=== PATIENT | male | born 1955 | race African-American/Black ===

== ENCOUNTER 2017-11-21 13:32 | Emergency (ER) | payer BC, OTHER ==
[~2017-11-21] VITALS: Ht 182.9 cm; Wt 138.0 kg
[~2017-11-21 13:32] MED LIST: POLY17S PO; SENN1TAB PO; TAMS5CAP PO
[2017-11-21 13:40] VITALS: BP 107/55; PULSE 82; RESP 15; TEMP 97.9; O2SAT 98
--- NOTE | 2017-11-21 14:12 | RADRPT ---
EXAM DATE/TIME: 11/21/2017 13:48 [facility] COMPARISON: No previous studies available for comparison. INDICATIONS : Syncope. MEDICAL HISTORY : None. SURGICAL HISTORY : None. ENCOUNTER: Subsequent ACUITY: 1 day PAIN SCORE: 0/10 LOCATION: Bilateral chest FINDINGS: A single view of the chest demonstrates the lungs to be symmetrically aerated without evidence of mas s, infiltrate or effusion. The cardiomediastinal contours are unremarkable. Osseous structures are intact. CONCLUSION: No acute disease. Mahad Ramirez MD on November 21, 2017 at 14:09 Board Certified Radiologist. This report was verified electronically.
[2017-11-21 14:21] VITALS: BP 117/58; PULSE 82; RESP 17; O2SAT 98
[2017-11-21] MEDS ORDERED: FINA5TAB2 PO (14:23)
--- NOTE | 2017-11-21 14:39 | PD ---
Data Data Last Documented VS Vital Signs Date Time Temp Pulse Resp B/P (MAP) Pulse Ox O2 Delivery O2 Flow Rate FiO2 11/21/17 16:22 84 17 119/66 (83) 100 Room Air 11/21/17 13:40 97.9 Orders Orders Complete Blood Count With Diff (11/21/17 13:44) Basic Metabolic Panel (Bmp) (11/21/17 13:44) Ckmb (Isoenzyme) Profile (11/21/17 13:44) Troponin I (11/21/17 13:44) Prothrombin Time / Inr (Pt) (11/21/17 13:44) Act Partial Throm Time (Ptt) (11/21/17 13:44) Magnesium (Mg) (11/21/17 13:44) Chest, Single Ap (11/21/17 13:44) Iv Access Insert/Monitor (11/21/17 13:44) Ecg Monitoring (11/21/17 13:44) Oximetry (11/21/17 13:44) Orthostatic Vital Signs (11/21/17 13:44) Ct Abd/Pel W Iv Contrast(Rout) (11/21/17 14:30) Ct Pulmonary Angiogram (11/21/17 14:30) Electrocardiogram (11/21/17 ) Type And Screen (11/21/17 14:47) CKMB (11/21/17 14:15) CKMB% (11/21/17 14:15) Sodium Chlor 0.9% 1000 Ml Inj (Ns 1000 M (11/21/17 15:30) Hydromorphone Pf Inj (Dilaudid Pf Inj) (11/21/17 15:30) Ed Discharge Order (11/21/17 17:06) Labs Laboratory Tests Test 11/21/17 14:15 White Blood Count 7.1 TH/MM3 Red Blood Count 3.76 MIL/MM3 Hemoglobin 9.7 GM/DL Hematocrit 30.1 % Mean Corpuscular Volume 80.1 FL Mean Corpuscular Hemoglobin 25.8 PG Mean Corpuscular Hemoglobin Concent 32.2 % Red Cell Distribution Width 15.8 % Platelet Count 204 TH/MM3 Mean Platelet Volume 8.4 FL Neutrophils (%) (Auto) 85.4 % Lymphocytes (%) (Auto) 10.0 % Monocytes (%) (Auto) 4.3 % Eosinophils (%) (Auto) 0.1 % Basophils (%) (Auto) 0.2 % Neutrophils # (Auto) 6.1 TH/MM3 Lymphocytes # (Auto) 0.7 TH/MM3 Monocytes # (Auto) 0.3 TH/MM3 Eosinophils # (Auto) 0.0 TH/MM3 Basophils # (Auto) 0.0 TH/MM3 CBC Comment DIFF FINAL Differential Comment Prothrombin Time 10.8 SEC Prothromb Time International Ratio 1.1 RATIO Activated Partial Thromboplast Time 23.4 SEC Blood Urea Nitrogen 17 MG/DL Creatinine 1.15 MG/DL Random Glucose 116 MG/DL Calcium Level 7.7 MG/DL Magnesium Level 1.7 MG/DL Sodium Level 136 MEQ/L Potassium Level 4.0 MEQ/L Chloride Level 104 MEQ/L Carbon Dioxide Level 24.3 MEQ/L Anion Gap 8 MEQ/L Estimat Glomerular Filtration Rate 78 ML/MIN Total Creatine Kinase 233 U/L Creatine Kinase MB 1.5 NG/ML Troponin I LESS THAN 0.02 NG/ML MDM Medical Record Reviewed: Yes Supervised Visit with CHUCKY: Yes Narrative Course I, Dr. Craven, have reviewed the advance practice practitioner's documentation and am in agreement, met with the patient face to face, made the diagnosis, and the medical decision making was done by me. *My assessment and Findings: The patient experienced a near syncope episode associated with hypotension during a TURP procedure today. Last 24 hours Impressions Chest X-Ray 11/21/17 1344 Signed Impressions: Service Date/Time: October 13:48 - CONCLUSION: No acute disease. Mahad Ramirez MD CBC & BMP Diagram 11/21/17 14:15 Calcium Level 7.7 L, Magnesium Level 1.7 Last 24 hours Impressions Chest X-Ray 11/21/17 1344 Signed Impressions: Service Date/Time: October 13:48 - CONCLUSION: No acute disease. Mahad Ramirez MD EKG: sinus, rate 81, normal axis, no pre-excitation, no sign ACS Pt to follow up with Dr Wisdom as an outpatient. Diagnosis Primary Impression: Altered mental status Additional Impression: Hypotension Referrals: Christian Wisdom MD call for appointment Additional Instruction: OK TO STOP FINESTERIDE AND TAMSULOSIN Med/Other Pt SpecificInfo: Existing Med Changed Disposition: DISCHARGE HOME Condition: Stable Hu Craven MD Nov 21, 2017 14:39
--- NOTE | 2017-11-21 14:39 | PD ---
HPI Chief Complaint: Complaint Time Seen by Provider: 13:46 Travel History International Travel<30 days: No Contact w/Intl Traveler<30days: No Traveled to known affect area: No History of Present Illness HPI 62-year-old male that presents to the ED for evaluation of hypotension after procedure today. Patient had TURP procedure as well as kidney stone removal by Dr. johnson today as an outpatient. Patient came out of the surgery fine but he was found to be hypotensive and somewhat confused. Per report, was given patient did had some bleeding coming from the Anderson the patient currently has. Patient has irrigation on his Anderson currently. Patient was brought here for evaluation of the hypotension. Per ambulance patient was given fluids and currently his blood pressure has been in the 120 systolic. Per ambulance his alleged blood pressure was in the 80s systolic after surgery. Patient takes no blood thinners. States having some pressure on his bladder otherwise no other symptoms. No dizziness. No headache. No chest pain or shortness of breath. Has no allergies to medication. No other medical issues. PFSH Past Medical History Cancer: No Cardiovascular Problems: No High Cholesterol: No Endocrine: No Gastrointestinal Disorders: Yes (current c/o constipation) Genitourinary: Yes (retention) Immune Disorder: No Musculoskeletal: No Neurologic: No Psychiatric: No Respiratory: No Influenza Vaccination: No Past Surgical History Genitourinary Surgery: Yes (TURP) Social History Alcohol Use: Yes Tobacco Use: No Substance Use: No Allergies-Medications (Allergen,Severity, Reaction): Coded Allergies: No Known Allergies (Unverified Adverse Reaction, Unknown, 11/21/17) Reported Meds & Prescriptions Reported Meds & Active Scripts Active Polyethylene Glycol 3350 Powder (Polyethylene Glycol) 17 Gm Pow 17 Gm PO DAILY Senna Plus 8.6-50 mg (Sennosides-Docusate Sodium) 1 Tab Tab 2 Tab PO BID Flomax (Tamsulosin HCl) 0.4 Mg Cap 0.4 Mg PO DAILY Reported Finasteride 5 Mg Tab 5 Mg PO DAILY Do not crush. Review of Systems Except as stated in HPI: all other systems reviewed are Neg Physical Exam Narrative GENERAL: SKIN: Warm and dry. HEAD: Atraumatic. Normocephalic. EYES: Pupils equal and round. No scleral icterus. No injection or drainage. ENT: No nasal bleeding or discharge. Mucous membranes pink and moist. Tongue is midline. No uvula deviation. NECK: Trachea midline. No JVD. CARDIOVASCULAR: Regular rate and rhythm. No murmurs, S3, S4. RESPIRATORY: No accessory muscle use. Clear to auscultation. Breath sounds equal bilaterally. GASTROINTESTINAL: Abdomen soft, non-tender, nondistended. Hepatic and splenic margins not palpable. Genital exam: Patient has a Anderson noted on the penis. Appears to be draining clear fluid as well as urine and mild amount no blood. No obvious blood clots or significant bleeding noted other than on the back that appears to be somewhat bloody. MUSCULOSKELETAL: Extremities without clubbing, cyanosis, or edema. No obvious deformities. Full range of motion of the upper and lower extremity is bilaterally. 2+ pulses bilaterally. NEUROLOGICAL: Awake and alert. No obvious cranial nerve deficits. Motor grossly within normal limits. Five out of 5 muscle strength in the arms and legs. Normal speech. PSYCHIATRIC: Appropriate mood and affect; insight and judgment normal. Data Data Last Documented VS Vital Signs Date Time Temp Pulse Resp B/P (MAP) Pulse Ox O2 Delivery O2 Flow Rate FiO2 11/21/17 16:22 84 17 119/66 (83) 100 Room Air 11/21/17 13:40 97.9 Orders Orders Complete Blood Count With Diff (11/21/17 13:44) Basic Metabolic Panel (Bmp) (11/21/17 13:44) Ckmb (Isoenzyme) Profile (11/21/17 13:44) Troponin I (11/21/17 13:44) Prothrombin Time / Inr (Pt) (11/21/17 13:44) Act Partial Throm Time (Ptt) (11/21/17 13:44) Magnesium (Mg) (11/21/17 13:44) Chest, Single Ap (11/21/17 13:44) Iv Access Insert/Monitor (11/21/17 13:44) Ecg Monitoring (11/21/17 13:44) Oximetry (11/21/17 13:44) Orthostatic Vital Signs (11/21/17 13:44) Ct Abd/Pel W Iv Contrast(Rout) (11/21/17 14:30) Ct Pulmonary Angiogram (11/21/17 14:30) Electrocardiogram (11/21/17 ) Type And Screen (11/21/17 14:47) CKMB (11/21/17 14:15) CKMB% (11/21/17 14:15) Sodium Chlor 0.9% 1000 Ml Inj (Ns 1000 M (11/21/17 15:30) Hydromorphone Pf Inj (Dilaudid Pf Inj) (11/21/17 15:30) Ed Discharge Order (11/21/17 17:06) Labs Laboratory Tests Test 11/21/17 14:15 White Blood Count 7.1 TH/MM3 Red Blood Count 3.76 MIL/MM3 Hemoglobin 9.7 GM/DL Hematocrit 30.1 % Mean Corpuscular Volume 80.1 FL Mean Corpuscular Hemoglobin 25.8 PG Mean Corpuscular Hemoglobin Concent 32.2 % Red Cell Distribution Width 15.8 % Platelet Count 204 TH/MM3 Mean Platelet Volume 8.4 FL Neutrophils (%) (Auto) 85.4 % Lymphocytes (%) (Auto) 10.0 % Monocytes (%) (Auto) 4.3 % Eosinophils (%) (Auto) 0.1 % Basophils (%) (Auto) 0.2 % Neutrophils # (Auto) 6.1 TH/MM3 Lymphocytes # (Auto) 0.7 TH/MM3 Monocytes # (Auto) 0.3 TH/MM3 Eosinophils # (Auto) 0.0 TH/MM3 Basophils # (Auto) 0.0 TH/MM3 CBC Comment DIFF FINAL Differential Comment Prothrombin Time 10.8 SEC Prothromb Time International Ratio 1.1 RATIO Activated Partial Thromboplast Time 23.4 SEC Blood Urea Nitrogen 17 MG/DL Creatinine 1.15 MG/DL Random Glucose 116 MG/DL Calcium Level 7.7 MG/DL Magnesium Level 1.7 MG/DL Sodium Level 136 MEQ/L Potassium Level 4.0 MEQ/L Chloride Level 104 MEQ/L Carbon Dioxide Level 24.3 MEQ/L Anion Gap 8 MEQ/L Estimat Glomerular Filtration Rate 78 ML/MIN Total Creatine Kinase 233 U/L Creatine Kinase MB 1.5 NG/ML Troponin I LESS THAN 0.02 NG/ML MDM Medical Decision Making Medical Screen Exam Complete: Yes Emergency Medical Condition: Yes Medical Record Reviewed: Yes Interpretation(s) CBC & BMP Diagram 11/21/17 14:15 Calcium Level 7.7 L, Magnesium Level 1.[address] Angiography 11/21/17 1430 Signed Impressions: Service Date/Time: October 15:54 - CONCLUSION: No evidence of pulmonary embolism Roosevelt Campuzano MD Chest X-Ray 11/21/17 1344 Signed Impressions: Service Date/Time: October 13:48 - CONCLUSION: No acute disease. Mahad Ramirez MD coags WNL troponin and CKMB WNL EKG shows sinus rhythm with no sign of acute ischemia or arrhythmia read by my attending. Differential Diagnosis Tension versus postprocedural complication versus bleeding versus PE versus electrolyte abnormality versus perforation Narrative Course 62-year-old male that presents to the ED for evaluation of hypotension after procedure today. Patient was properly examined and was found to have signs and symptoms concerning for hypotension. Unclear etiology at this time. Labs and imaging were ordered. Patient currently normotensive. No complaints other than some pressure to his bladder. Patient appears to be having clear fluid and urine coming out of the Anderson currently and there is minimal amount of blood that I can see. Patient with a blood thinners. Labs and imaging showed no sign of acute disease. Case was discussed in my attending who spoke with Dr. Wisdom who states that patient can be discharged home. Patient was told this and agrees with plan. Patient was told to follow up with urologist. See ED worsening symptoms. My attending spoke with the patient in regards to what Dr. Wisdom wants. Diagnosis Primary Impression: Hypotension Qualified Codes: I95.9 - Hypotension, unspecified Additional Impressions: Dizziness S/P TURP (status post transurethral resection of prostate) Patient Instructions: General Instructions, Narcotic given in the ED Additional Instructions: Take medications as prescribed. Follow-up with your urologist. See ED worsening symptoms. Med/Other Pt SpecificInfo: Prescription(s) given Disposition: 01 DISCHARGE HOME Condition: Stable Biju Ayala Nov 21, 2017 14:39
[2017-11-21 14:40] LABS: AUTOMATED NEUTROPHIL # 6.1 TH/MM3 (1.8-7.7); BASOPHIL % 0.2 % (0.0-2.0); EOSINOPHIL % 0.1 % (0.0-4.0); HEMATOCRIT 30.1 % (39.0-51.0); HEMOGLOBIN 9.7 GM/DL (13.0-17.0); LYMPHOCYTE # 0.7 TH/MM3 (1.0-4.8); MEAN CELL VOLUME 80.1 FL (80.0-100.0); MEAN CORPUSCULAR HEMOGLOBIN 25.8 PG (27.0-34.0); MEAN CORPUSCULAR HGB CONC 32.2 % (32.0-36.0); MEAN PLATELET VOLUME 8.4 FL (7.0-11.0); MONO % 4.3 % (0.0-8.0); MONOCYTE # 0.3 TH/MM3 (0-0.9); NEUT % 85.4 % (16.0-70.0); PLATELET COUNT 204 TH/MM3 (150-450); RED BLOOD COUNT 3.76 MIL/MM3 (4.50-5.90); RED CELL DISTRIBUTION WIDTH 15.8 % (11.6-17.2); WHITE BLOOD COUNT 7.1 TH/MM3 (4.0-11.0)
[2017-11-21 14:54] LABS: INTERNATIONAL NORMALIZED RATIO 1.1 RATIO; PROTHROMBIN TIME - PATIENT 10.8 SEC (9.8-11.6)
[2017-11-21 14:58] LABS: BICARBONATE 24.3 MEQ/L (21.0-32.0); BLOOD UREA NITROGEN 17 MG/DL (7-18); CALCIUM 7.7 MG/DL (8.5-10.1); CHLORIDE 104 MEQ/L (98-107); CREATININE 1.15 MG/DL (0.60-1.30); GLOMERULAR FILTRATION RATE 78 ML/MIN (>89); GLUCOSE,RANDOM 116 MG/DL (74-106); MAGNESIUM 1.7 MG/DL (1.5-2.5); SODIUM (NA) 136 MEQ/L (136-145)
[2017-11-21 15:02] LABS: TROPONIN I LESS THAN 0.02 NG/ML (0.02-0.05)
[2017-11-21 15:17] VITALS: BP 103/55; PULSE 85; RESP 15; O2SAT 97
[2017-11-21] MEDS ORDERED: SODIUM CHLOR 0.9% 1000 ML INJ 1,000 ML IV ONE (15:30)
[2017-11-21] MEDS ORDERED: HYDROmorphone HCL PF 2 MG/ML VIAL IV PUSH ONE (15:30)
[2017-11-21] MEDS ORDERED: IOHEXOL 350 MG/ML 10 ML VIAL (for RAD DIAG) IVCONTRAST ONE (15:54)
[2017-11-21 16:22] VITALS: BP 119/66; PULSE 84; RESP 17; O2SAT 100
--- NOTE | 2017-11-21 16:22 | RADRPT ---
EXAM DATE/TIME: 11/21/2017 15:54 [facility] COMPARISON: CT ABDOMEN & PELVIS W/O CONTRAST, July 16, 2016, 18:02. INDICATIONS : Past TURP procedure, abdominal and chest pain. IV CONTRAST: 100 cc Omnipaque 350 (iohexol) IV ; Cumulative dose for multiple exams. RADIATION DOSE: 18.45 CTDIvol (mGy) MEDICAL HISTORY : Renal failure, acute. Renal calculi. urinary retention SURGICAL HISTORY : TURP ENCOUNTER: Initial ACUITY: 1 day PAIN SCALE: 6/10 LOCATION: chest TECHNIQUE: Volumetric scanning of the chest was performed using a pulmonary embolism protocol MIP images were re constructed. Using automated exposure control and adjustment of the mA and/or kV according to patien t size, radiation dose was kept as low as reasonably achievable to obtain optimal diagnostic quality images. DICOM format image data is available electronically for review and comparison. Follow-up recommendations for detected pulmonary nodules are based at a minimum on nodule size and pa tient risk factors according to Fleischner Society Guidelines. FINDINGS: PULMONARY ARTERIES: No filling defects are seen in the pulmonary arteries through the segmental level. LUNGS: Stable tiny nodule in the posterior lateral left lung base. No evidence of infiltrate. PLEURAE: There is no pleural thickening or pleural effusion. MEDIASTINUM: There is good visualization of the great vessels of the middle mediastinum. No evidence of mediastin al or hilar adenopathy/mass. MUSCULOSKELETAL: Within normal limits for patient age. CONCLUSION: No evidence of pulmonary embolism Roosevelt Campuzano MD on November 21, 2017 at 16:18 Board Certified Radiologist. This report was verified electronically.
--- NOTE | 2017-11-21 16:38 | RADRPT ---
EXAM DATE/TIME: 11/21/2017 15:54 [facility] COMPARISON: No previous studies available for comparison. INDICATIONS : Post TURP surgery, abdominal pain and chest pain. IV CONTRAST: 100 cc Omnipaque 350 (iohexol) IV ORAL CONTRAST: No oral contrast ingested. RADIATION DOSE: 29.24 CTDIvol (mGy) MEDICAL HISTORY : Renal calculi. Renal failure, acute. urinary retention SURGICAL HISTORY : TURP ENCOUNTER: Initial ACUITY: 1 day PAIN SCALE: 6/10 LOCATION: abdomen/pelvis TECHNIQUE: Volumetric scanning of the abdomen and pelvis was performed. Using automated exposure control and ad justment of the mA and/or kV according to patient size, radiation dose was kept as low as reasonably achievable to obtain optimal diagnostic quality images. DICOM format image data is available electro nically for review and comparison. FINDINGS: LOWER LUNGS: The visualized lower lungs are clear. LIVER: The liver is enlarged and demonstrates fatty infiltration. No focal mass is noted There is no dilatio n of the biliary tree. No calcified gallstones. SPLEEN: Normal size without lesion. PANCREAS: Within normal limits. KIDNEYS: Normal in size and shape. There is no solid mass, stone or hydronephrosis. Mild ureteropelvicaliecta sis is noted on the right without definite calcified calculus noted. 2 right renal cysts are noted wi th the larger measuring 3.3 cm. ADRENAL GLANDS: Within normal limits. VASCULAR: There is no aortic aneurysm. BOWEL/MESENTERY: Uncomplicated colonic diverticulosis is noted. ABDOMINAL WALL: Within normal limits. RETROPERITONEUM: There is no lymphadenopathy. BLADDER: No wall thickening or mass. A Anderson catheter is noted within the urinary bladder. REPRODUCTIVE: The prostate is prominent in size. INGUINAL: There is no lymphadenopathy or hernia. MUSCULOSKELETAL: Degenerative changes are noted throughout the thoracolumbar spine. CONCLUSION: 1. Mild right ureteropelvocaliectasis raising the possibility of mild right distal ureteral obstructi on. No calcified calculus is noted. 2. Enlarged fatty liver. 3. Uncomplicated colonic diverticulosis. 4. Right renal cysts. 5. Degenerative changes throughout the thoracolumbar spine. Mahad Ramirez MD on November 21, 2017 at 16:31 Board Certified Radiologist. This report was verified electronically.
--- NOTE | 2017-11-22 20:04 | EKG ---
Date Performed: 11/21/2017 Time Performed: 15:36:38 PTAGE: 62 years EKG: Sinus rhythm Since previous tracing, no significant change noted NORMAL ECG PREVIOUS TRACING : 08/23/2016 15.50 DOCTOR: Renzo Guaman Interpretating Date/Time 11/22/2017 19:58:51
== END 2017-11-21 17:44 | disposition home or self-care (01) ==
LOC: NEPE 13:32
DX: I95.81 Postprocedural hypotension (principal); K57.30 Diverticulosis of large intestine without perforation or abscess without bleeding; K76.0 Fatty (change of) liver, not elsewhere classified; N28.1 Cyst of kidney, acquired; R55 Syncope and collapse
CPT/HCPCS: 71045; 71275; 74177; 80048; 82550; 82552; 83735; 84484; 85025; 85610; 85730; 86850; 86900; 86901; 93005; 96361; 96374; 99285; J1170; J7030; Q9967